=== PATIENT | male | born 1965 | race African-American/Black ===

== ENCOUNTER 2019-06-20 17:44 | Observation (INO) | payer OTHER ==
[2019-06-20] MEDS ORDERED: Aspirin Chewable 81 MG TAB ONE (18:07)
[2019-06-20] MEDS ORDERED: Nitroglycerin 2% Ointment 1 INCH/1 GM Packet ONE (18:07)
[2019-06-20 18:18] LABS: #Basophils 0.1 thou/uL (0.0-0.2); #Eosinphils 0.1 thou/uL (0.0-0.7); #Lymphocytes 1.9 thou/uL (1.20-3.40); #Monocytes 0.7 thou/uL (0.11-0.59); #Neutrophils 3.7 thou/uL (1.40-6.50); %Basophils 1.3 % (0.0-1.0); %Eosinophils 2.1 % (0.0-10.0); %Lymphocytes 28.4 % (21.0-51.0); %Monocytes 11.3 % (0.0-10.0); Hemoglobin 15.1 g/dL (14.0-18.0); Mean Corpuscular Hemoglobin 29.5 pg (27.0-31.0); Mean Corpuscular Volume 86.8 fL (78.0-98.0); Mean Platelet Volume 7.7 fL (7.4-10.4); Platelet Count 305 thou/uL (130-400); RBC Distribution Width 12.7 % (11.5-14.5); White Blood Cell (WBC) Count 6.6 thou/uL (4.8-10.8)
--- NOTE | 2019-06-20 18:28 | RAD ---
FRONTAL RADIOGRAPH CHEST: 06/20/19 COMPARISON: None available. HISTORY: Chest pain and hypertension. FINDINGS: No pneumothorax or pleural fluid. No focal consolidation or alveolar edema. IMPRESSION: No focal consolidation or alveolar edema. POS: [facility]
[2019-06-20 18:42] LABS: ALT (SGPT) 12 U/L (8-55); AST (SGOT) 25 U/L (5-34); Albumin 4.4 g/dL (3.5-5.0); Alkaline Phosphatase 75 U/L (40-110); Anion Gap 12 mmol/L (10-20); BUN (Urea Nitrogen) 11 mg/dL (8.4-25.7); Bilirubin, Total 0.3 mg/dL (0.2-1.2); Calc. Creatinine Clearance 0 mL/min (70-130); Carbon Dioxide 26 mmol/L (22-29); Chloride 104 mmol/L (98-107); Estimated GFR-MDRD 77; Globulin 3.8 g/dL (2.4-3.5); Glucose 100 mg/dL (70-105); Lipase 27 U/L (8-78); Potassium 5.9 mmol/L (3.5-5.1); Protein, Total 8.2 g/dL (6.0-8.3); Sodium 136 mmol/L (136-145)
[2019-06-20] MEDS ORDERED: hydrALAZINE 20 MG/ML VIAL ONE (19:59)
[2019-06-20 22:34] LABS: Troponin I 0.014 ng/mL (< 0.028)
[2019-06-20] MEDS ORDERED: hydrALAZINE 20 MG/ML VIAL SLOW IVP PRN (22:35)
[2019-06-20] MEDS ORDERED: Ondansetron ODT 4 MG TAB PO PRN (22:35)
[2019-06-20] MEDS ORDERED: Ondansetron PF 4 MG/2 ML Vial IVP PRN (22:35)
[2019-06-20] MEDS ORDERED: cloNIDine 0.1 MG TAB PO PRN (22:35)
[2019-06-20] MEDS ORDERED: Acetaminophen 500 MG TAB ONE (22:39)
[2019-06-20 23:21] LABS: Anion Gap 16 mmol/L (10-20); BUN (Urea Nitrogen) 11 mg/dL (8.4-25.7); Calc. Creatinine Clearance 0 mL/min (70-130); Calcium 9.2 mg/dL (7.8-10.44); Carbon Dioxide 21 mmol/L (22-29); Chloride 105 mmol/L (98-107); Estimated GFR-MDRD 85; Glucose 170 mg/dL (70-105); Potassium 4.2 mmol/L (3.5-5.1); Sodium 138 mmol/L (136-145)
--- NOTE | 2019-06-20 23:57 | HP ---
PRIMARY CARE PROVIDER: [facility]. CHIEF COMPLAINT: Chest pain and high blood pressure. HISTORY OF PRESENT ILLNESS: This is a 54-year-old male, who was brought in by law enforcement personnel from the [facility] longterm with elevated blood pressure with associated chest pain and nausea. The patient states he has been off his blood pressure medication due to increased somnolence and having to use the restroom more, but unable to due to a class he is participating in at the longterm. The patient states he has been on blood pressure medications for years, however, was taken off the medications apparently at the direction of one of the longterm personnel. The patient admitted to feeling generally weak, dizzy with some chest pain, worsening in the last 24 hours. The patient describes sharp shooting chest pain with mild shortness of breath, but no left arm or jaw discomfort. The patient does admit to history of coronary artery disease, status post cardiac stent placement x2. In the emergency room, the patient was noted with blood pressure 155/131 at presentation and initiated on hydralazine and transdermal nitroglycerin. The patient received aspirin 324 mg with overall decrease in blood pressure trend. EKG showed sinus bradycardia without evidence for ischemia. PAST MEDICAL HISTORY: 1. Hypertension. 2. Myocardial infarction in 2007. 3. Coronary artery disease, status post cardiac stent placement x2. 4. Depression. 5. Remote tobacco use. PAST SURGICAL HISTORY: Status post cardiac stent placement x2. CURRENT MEDICATIONS: 1. Amlodipine 10 mg p.o. daily. 2. Aspirin 81 mg p.o. daily. 3. Carvedilol 6.25 mg p.o. b.i.d. 4. Lactulose 10 g per 15 mL p.o. b.i.d. p.r.n. 5. Omeprazole 20 mg p.o. daily. 6. Hydrochlorothiazide 25 mg p.o. daily. ALLERGIES: NO KNOWN DRUG ALLERGIES. FAMILY HISTORY: Positive for hypertension and coronary artery disease. SOCIAL HISTORY: Currently incarcerated in the [facility] longterm. Former tobacco use, none currently. No alcohol or illicit drug use. REVIEW OF SYSTEMS: CONSTITUTIONAL: Negative for weight loss or gain, ability to conduct usual activities. SKIN: Negative for rash, itching. EYES: Negative for double vision, pain. ENT/MOUTH: Negative for nose bleeding, neck stiffness, pain, tenderness. CARDIOVASCULAR: Negative for palpitations, dyspnea on exertion, orthopnea. RESPIRATORY: Negative for shortness of breath, wheezing, cough, hemoptysis, fever or night sweats. GASTROINTESTINAL: Negative for poor appetite, abdominal pain, heartburn, nausea, vomiting, constipation, or diarrhea. GENITOURINARY: Negative for urgency, frequency, dysuria, nocturia. MUSCULOSKELETAL: Negative for pain, swelling. NEUROLOGIC/PSYCHIATRIC: Negative for anxiety, depression. ALLERGY/IMMUNOLOGIC: Negative for skin rash, bleeding tendency. Otherwise negative except as stated per HPI. PHYSICAL EXAMINATION: VITAL SIGNS: On admission, blood pressure 155/131, pulse 57, respiratory rate 18, temperature 97.7 degrees Fahrenheit, O2 saturation 99% on room air. GENERAL APPEARANCE: This is a 54-year-old -[place] male, alert and oriented x3, pleasant, smiling, in no acute distress. HEENT: Pupils are equal, round, reactive to light and accommodation. Extraocular muscles are intact. No scleral icterus. Mild conjunctival injection of the left eye. Nares are patent. OP is clear. Teeth in fair repair. NECK: Supple. No cervical adenopathy. No thyromegaly. No carotid bruits. No JVD appreciated. Cervical spine with full active and passive range of motion. No meningeal signs noted. CHEST: Lungs are clear to auscultation bilaterally. CARDIOVASCULAR: S1, S2 without noted murmur, rub, or gallop. ABDOMEN: Obese. Landmarks are difficult to palpate due to patient's body habitus. No rebound or guarding appreciated. Bowel sounds are positive in all 4 quadrants. EXTREMITIES: Warm and dry with fair turgor. No clubbing, cyanosis, or asymmetric edema appreciated. Pulses palpable distally at the dorsalis pedis, posterior tibial, and popliteal arteries bilaterally. Capillary refill less than 2 seconds. NEUROLOGIC: Cranial nerves 2 through 12 are grossly intact. No focal or lateralizing signs appreciated. PERTINENT LABORATORY AND X-RAY FINDINGS: Sodium 136, potassium 5.9, chloride 104, CO2 of 26, BUN 11, creatinine 1.20, estimated GFR 77, glucose 100, calcium 9.0. LFTs within normal limits. Troponin I negative x2. Lipase 27. CBC showed a white blood cell count of 6.6, hemoglobin 15, hematocrit 44, platelet count 305, with normal differential. Portable chest x-ray dated 06/20/2019, showed no acute cardiopulmonary process. EKG dated 06/20/2019, by my interpretation shows sinus bradycardia with heart rates in the 50s. Normal R-wave progression noted in the precordial leads. Normal axis. No acute ST-T wave changes appreciated. ASSESSMENT AND PLAN: 1. Hypertensive urgency. The patient will be observed on the telemetry unit. Initially managed with IV hydralazine and transdermal nitroglycerin. Overall blood pressure trend improved. Resume home regimen to include amlodipine, Coreg, and hydrochlorothiazide. Continue serial blood pressure monitoring. No evidence of acute coronary syndrome. 2. Hyperkalemia. Repeat potassium level. Avoid potassium supplementation. Recheck potassium level in the a.m. 3. Coronary artery disease, chronic and stable. No current evidence to suggest acute coronary syndrome. Continue aspirin 81 mg daily. Resume home blood pressure regimen as outlined in #1. 4. Chronic kidney disease, stage 2. Avoid nephrotoxic agents and limit contrast exposure. Repeat creatinine in the a.m. 5. Prophylaxis. SCDs while in bed. Pepcid 20 mg p.o. b.i.d. 6. Code status is full. Surrogate medical decision maker is [facility]. Job ID: [id number]
[2019-06-20 23:58] VITALS: BMI 39.4
[2019-06-21 01:00] LABS: Troponin I Less than 0.010 ng/mL (< 0.028)
[2019-06-21 06:13] LABS: Anion Gap 10 mmol/L (10-20); BUN (Urea Nitrogen) 12 mg/dL (8.4-25.7); Calc. Creatinine Clearance 167 mL/min (70-130); Calcium 9.1 mg/dL (7.8-10.44); Carbon Dioxide 24 mmol/L (22-29); Chloride 108 mmol/L (98-107); Estimated GFR-MDRD Greater than 90; Glucose 129 mg/dL (70-105); Potassium 4.1 mmol/L (3.5-5.1); Sodium 138 mmol/L (136-145)
[2019-06-21 06:16] LABS: Band 1 % (5-11); Hemoglobin 14.2 g/dL (14.0-18.0); Lymphocytes 29 % (21-51); MDiff Complete? YES; Mean Corpuscular HGB CONC 33.9 g/dL (32.0-36.0); Mean Corpuscular Hemoglobin 29.3 pg (27.0-31.0); Mean Corpuscular Volume 86.4 fL (78.0-98.0); Mean Platelet Volume 7.4 fL (7.4-10.4); Monocytes 15 % (0-10); Neutrophil 54 % (42-75); Platelet Count 288 thou/uL (130-400); RBC Distribution Width 12.7 % (11.5-14.5); Reactive Lymphocytes 1 % (0-10); Red Blood Cell (RBC) Count 4.84 mill/uL (4.70-6.10); White Blood Cell (WBC) Count 6.3 thou/uL (4.8-10.8)
[2019-06-21] MEDS: Famotidine 20 MG TAB PO SCH ×2 (08:02→21:09)
[2019-06-21] MEDS: Acetaminophen 500 MG TAB PO PRN ×2 (08:04→21:11)
--- NOTE | 2019-06-21 14:09 | PDOC.HOSPP ---
- Subjective Encounter Date: 06/21/19 Encounter Time: 11:00 Subjective: Pt seen for followup re: chest pain. Reports pain is better. - Objective Vital Signs & Weight: Vital Signs (12 hours) Temp Pulse Resp BP Pulse Ox 06/21/19 11:52 97.9 F 65 20 144/83 H 99 06/21/19 07:33 97.4 F L 65 20 139/79 98 06/21/19 03:42 97.7 F 74 18 129/85 97 Weight Weight 298 lb 9.6 oz I&O: 06/20/19 06/21/19 06/22/19 06:59 06:59 06:59 Intake Total 480 Output Total 400 Balance 80 Result Diagrams: 06/21/19 05:28 06/21/19 05:28 Additional Labs: labs and MARs reviewed by me EKG Reviewed by me: Yes (Tele; NSR) Hospitalist ROS - Review of Systems Cardiovascular: denies: chest pain, palpitations, orthopnea, paroxysmal noc. dyspnea, edema, light headedness Gastrointestinal: denies: nausea, vomiting, abdominal pain, diarrhea, constipation, melena, hematochezia - Medication Medications: Active Medications Generic Name Dose Route Start Last Admin Trade Name Freq PRN Reason Stop Dose Admin Acetaminophen 1,000 mg 06/20/19 22:35 06/21/19 08:04 Tylenol PO 1,000 mg Q6H PRN Administration Mild Pain (1-3) Famotidine 20 mg 06/21/19 09:00 06/21/19 08:02 Pepcid PO 20 mg BID SHAI Administration - Exam General - other findings: Obese Eye: anicteric sclera ENT: moist mucosa Neck: supple Heart: RRR Respiratory: CTAB Gastrointestinal: soft, non-tender Extremities: no edema Musculoskeletal: normal tone, normal strength Psychiatric: normal affect, normal behavior Hosp A/P (1) Chest pain Code(s): R07.9 - CHEST PAIN, UNSPECIFIED Status: Acute (2) HTN (hypertension) Code(s): I10 - ESSENTIAL (PRIMARY) HYPERTENSION Status: Chronic (3) Hyperkalemia Code(s): E87.5 - HYPERKALEMIA Status: Resolved (4) Hypertensive urgency Code(s): I16.0 - HYPERTENSIVE URGENCY Status: Resolved - Plan Resume home medications. Monitor vital signs and titrate antihypertensives as needed. Stress test to r/o cardiac etiology for chest pain.
--- NOTE | 2019-06-21 15:08 | NM ---
NUCLEAR MEDICINE STRESS ONLY: HISTORY: Chest pain. TECHNIQUE: Chest only imaging was performed. The patient was administered 31.30 mCi of Technetium 99m sestamibi . FINDINGS: The stress attenuated corrected images demonstrate homogeneous distribution of the radiotracer. End-diastolic volume is 133 mL. End-systolic volume is 48 mL. CARDIAC GATING: Normal wall motion and thickening. 64% ejection fraction. IMPRESSION: 1. Homogeneous distribution of the radiotracer into the left ventricle. 2. 64% ejection fraction. POS: [facility]
[2019-06-21] MEDS ORDERED: Iopamidol-370 76% 500 ML 1 ML ONE (15:25)
[2019-06-21 19:54] VITALS: BP 149/95; TEMP 98.9
--- NOTE | 2019-06-21 20:41 | CT ---
CT arteriogram chest with IV contrast and 3-D imaging HISTORY: Chest pain. FINDINGS: There is good contrast opacification pulmonary arteries and thoracic aorta with normal bran kenji great vessels at the aortic arch. Mild atelectasis scattered throughout each lung. No mediastinal adenopathy. Degenerative changes of the thoracic spine. IMPRESSION: No CT evidence of pulmonary embolus.
[2019-06-21] MEDS ORDERED: Carvedilol 6.25 MG TAB PO SCH (21:00)
[2019-06-22] MEDS ORDERED: Hydrochlorothiazide 25 MG TAB PO SCH (09:00)
[2019-06-22] MEDS ORDERED: Aspirin 81 mg Enteric Coated Tablet PO SCH (09:00)
[2019-06-22] MEDS ORDERED: Amlodipine 10 MG TAB PO SCH (09:00)
--- NOTE | 2019-06-22 19:39 | DIS ---
DATE OF ADMISSION: 06/20/2019 DATE OF DISCHARGE: 06/21/2019 PRIMARY CARE PROVIDER: Unknown. DISCHARGE DIAGNOSES: 1. Chest pain. 2. Chest pain, most likely secondary to musculoskeletal etiology. 3. Hypertensive urgency. CONDITION OF PATIENT ON THE DAY OF DISCHARGE: Stable. I assessed Mr. Blue on the day of discharge. Please refer to my daily hospitalist progress note for further details regarding this [id number] encounter. HOSPITAL COURSE: Mr. Blue is a pleasant 54-year-old gentleman, who was admitted to the hospital on observation status on 06/20/2019, for hypertensive urgency and chest pain. Hypertension was controlled with blood pressure medications. Nuclear stress test showed homogeneous distribution of the radiotracer into the left ventricle. Left ventricular ejection fraction was 64%. He also had CT angiogram of the chest, which did not show any evidence of pulmonary embolism. He had degenerative changes of the thoracic spine. He is being discharged back to [facility] in a stable condition. DISCHARGE MEDICATIONS: 1. Amlodipine 10 mg daily. 2. Aspirin 81 mg daily. 3. Coreg 6.25 mg 2 times a day. 4. Hydrochlorothiazide 25 mg daily. 5. Lactulose 10 g 2 times a day. 6. Omeprazole 20 mg daily. DISCHARGE DESTINATION: [facility]. ACTIVITY: As tolerated. DIET: Regular. The patient has been advised to check his blood pressure and heart rate 3 times a day and show them to his primary care provider for titration of his antihypertensives. Job ID: [id number] [id number]
== END 2019-06-21 22:02 | disposition home or self-care (01) ==
LOC: ERS 17:44 → INTOOBSV 21:07 → IMCU/EMU 21:07 → ERHOLD 21:22 → IMCU/EMU 21:35 → ERHOLD 21:54 → 2SW 23:34
PROVIDERS: ADMIT Internal Medicine; ATTEND Internal Medicine
DX: I16.0 Hypertensive urgency (principal); R07.9 Chest pain, unspecified; I12.9 Hypertensive chronic kidney disease with stage 1 through stage 4 chronic kidney disease, or unspecified chronic kidney disease; N18.2 Chronic kidney disease, stage 2 (mild); I25.2 Old myocardial infarction; I25.10 Atherosclerotic heart disease of native coronary artery without angina pectoris; F32.9 Major depressive disorder, single episode, unspecified; E87.5 Hyperkalemia; Z86.73 Personal history of transient ischemic attack (TIA), and cerebral infarction without residual deficits; Z79.82 Long term (current) use of aspirin; Z79.899 Other long term (current) drug therapy; Z95.5 Presence of coronary angioplasty implant and graft
CPT/HCPCS: 36415; 71045; 71275; 78452; 80048; 80053; 83690; 84484; 85007; 85025; 85027; 85379; 93005; 93017; 96374; A9500; G0378; J0153; J0360; Q9967